=== PATIENT | male | born 1945 | race Caucasian/White ===

== ENCOUNTER → 2024-08-06 09:20 | Outpatient (REF) | payer MEDICARE, OTHER, SELFPAY | LOC: RAD 09:20 | PROVIDERS: ATTENDING PHYSICIAN Family Medicine | DX: I10 Essential (primary) hypertension (principal); E78.2 Mixed hyperlipidemia; R35.0 Frequency of micturition | CPT/HCPCS: 76770 ==

== ENCOUNTER → 2025-04-11 12:28 | Outpatient (REF) | payer MEDICARE, OTHER, SELFPAY | LOC: WOUND 12:28 | PROVIDERS: ATTENDING PHYSICIAN Surgery; FAMILY PHYSICIAN Family Medicine | DX: L28.0 Lichen simplex chronicus (principal); G62.9 Polyneuropathy, unspecified; I10 Essential (primary) hypertension | CPT/HCPCS: 99203 ==